=== PATIENT | male | born 1990 | race Caucasian/White ===

== ENCOUNTER 2017-04-27 03:10 | Emergency (ER) | payer OTHER ==
[~2017-04-27] VITALS: Ht 175.3 cm; Wt 60.0 kg
[2017-04-27 03:13] VITALS: BP 171/111
[2017-04-27] MEDS ORDERED: LORazepam 1MG TABLET ONE (05:07)
[2017-04-27] MEDS ORDERED: LORazepam 1MG TABLET PO ONE (05:30)
[2017-04-27] MEDS ORDERED: DILTIAZEM 5 MG/ML, 5ML IVPush ONE (06:30)
[2017-04-27] MEDS ORDERED: SODIUM CHLORIDE FLUSH 10ML SYR IVF ONE (06:30)
== END 2017-04-27 07:44 | disposition left against medical advice (07) ==
LOC: ED 05:00
DX: S62.114A Nondisplaced fracture of triquetrum [cuneiform] bone, right wrist, initial encounter for closed fracture (principal); F17.210 Nicotine dependence, cigarettes, uncomplicated; V00.131A Fall from skateboard, initial encounter; Y93.51 Activity, roller skating (inline) and skateboarding; Y99.8 Other external cause status; Y92.410 Unspecified street and highway as the place of occurrence of the external cause
CPT/HCPCS: 29125; 71045; 93005; 99284

== ENCOUNTER 2017-04-27 12:40 | Emergency (ER) | payer OTHER ==
[~2017-04-27] VITALS: Ht 175.3 cm; Wt 68.0 kg
[2017-04-27 12:48] VITALS: BP 138/86
== END 2017-04-27 14:19 | disposition home or self-care (01) ==
LOC: ED 12:42
DX: S60.211A Contusion of right wrist, initial encounter (principal); S00.81XA Abrasion of other part of head, initial encounter; F15.10 Other stimulant abuse, uncomplicated; V29.49XA Motorcycle driver injured in collision with other motor vehicles in traffic accident, initial encounter; Y93.55 Activity, bike riding; Y99.8 Other external cause status; Y92.410 Unspecified street and highway as the place of occurrence of the external cause
CPT/HCPCS: 70450; 99284